=== PATIENT | male | born 1995 | race American Indian/Alaskan Native ===

== ENCOUNTER 2019-06-20 18:37 | Emergency (ER) | payer OTHER ==
--- NOTE | 2019-06-20 20:01 | Emergency Department Report ---
{null, Blank Doc - Documentation Documentation: 23-year-old male that presents with right finger lac with possible glass. This initial assessment/diagnostic orders/clinical plan/treatment(s) is/are subject to change based on patient's health status, clinical progression and re- assessment by fellow clinical providers in the ED. Further treatment and workup at subsequent clinical providers discretion. Patient/guardians urged not to elope from the ED as their condition may be serious if not clinically assessed and managed. Initial orders include: 1- Patient sent to [facility] for further evaluation and treatment 2- xrays 3- tetanus }
--- NOTE | 2019-06-20 20:51 | XRay Report ---
{null, RIGHT FINGER(S) 3 VIEW(S) INDICATION / CLINICAL INFORMATION: finger lac r/o foreign body with cut across the back of the ring and little fingers. COMPARISON: None available. FINDINGS: BONES / JOINT(S): No acute fracture or subluxation. No significant arthritis. SOFT TISSUES: Mild soft tissue swelling of the dorsal aspect of the ring and little fingers. No radio paque foreign body. ADDITIONAL FINDINGS: None. Signer Name: Derick Forte MD Signed: 06/20/2019 8:47 PM Workstation Name: [id number] }
[2019-06-20] MEDS ORDERED: ceFAZolin 1 GM VIAL IM ONE (23:12)
[2019-06-20] MEDS ORDERED: ONDANSETRON 4 MG/2 ML INJ IM ONE (23:13)
[2019-06-20] MEDS ORDERED: fentaNYL 100 MCG/2 ML INJ IM ONE (23:13)
--- NOTE | 2019-06-20 23:30 | Emergency Department Report ---
{null, HPI - General Chief Complaint: Laceration/Recheck/Suture Time Seen by Provider: 06/20/19 19:59 - HPI HPI: Room 36 The patient is a 23-year-old male presenting with a chief complaint of right hand laceration. 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 Patient states he did not come in to the hospital at that time because he was celebrating Day. Patient complains of pain whenever he attempts to flex his fingers currently. ED Past Medical Hx - Past Medical History Previous Medical History?: Yes Hx Asthma: Yes - Surgical History Past Surgical History?: No - Family History Family history: no significant - Social History Smoking Status: Current Some Day Smoker Substance Use Type: None (Denies illicit drug use), Alcohol (Rarely) - Medications Home Medications: Home Medications Medication Instructions Recorded Confirmed Last Taken Type Acetaminophen/Codeine [Tylenol #3] 1 tab PO Q6H PRN #15 tab 07/25/15 Unknown Rx Cyclobenzaprine [Flexeril 10 MG 10 mg PO TID PRN #12 tablet 07/25/15 Unknown Rx TAB] traMADoL [Ultram] 50 mg PO Q6HR PRN #20 tablet 06/20/19 Unknown Rx ED Review of Systems ROS: Stated complaint: FINGER CUT BY GLASS Other details as noted in HPI Skin: other (Laceration) Physical Exam - Physical Exam Vital Signs: Vital Signs 06/20/19 06/20/19 19:22 20:03 Temperature 98.5 F 98.5 F Pulse Rate 74 77 Respiratory 18 28 H Rate Blood Pressure 148/85 148/85 O2 Sat by Pulse 100 100 Oximetry Physical Exam: GENERAL: The patient is well-developed well-nourished male sitting on chair holding hand in [place] not appear to be in acute distress. [] HEENT: Normocephalic. Atraumatic. Extraocular motions are intact. Patient has moist mucous membranes. NECK: Trachea midline CHEST/LUNGS: There is no respiratory distress noted. HEART/CARDIOVASCULAR: Normal capillary refill digits of right hand SKIN: There is a linear laceration overlying the dorsum of the right ring finger and right small finger. On the right ring finger there appears to be a small amount of exposed subcutaneous tissue. No active bleeding NEURO: The patient is awake, alert, and oriented. The patient is cooperative. The patient has no focal neurologic deficits. The patient has normal speech MUSCULOSKELETAL: There is no deformity. ED Course Vital Signs 06/20/19 06/20/19 19:22 20:03 Temperature 98.5 F 98.5 F Pulse Rate 74 77 Respiratory 18 28 H Rate Blood Pressure 148/85 148/85 O2 Sat by Pulse 100 100 Oximetry ED Medical Decision Making - Radiology Data Radiology results: report reviewed (Right hand x-ray), image reviewed (Right hand x-ray) interpreted by me: Right hand x-ray-no radiopaque foreign body seen. No fractures [facility] [address] [place] [address] XRay Report Signed Patient: EDMUND TRONCOSO MR#: [id number] : 1995 Acct:[id number] Age/Sex: 23 / M ADM Date: 06/20/19 Loc: ED Attending Dr: Ordering Physician: CASSANDRA SCOTT NP Date of Service: 06/20/19 Procedure(s): XR finger(s) 2+V RT Accession Number(s): [id number] cc: CASSANDRA SCOTT NP Fluoro Time In Minutes: RIGHT FINGER(S) 3 VIEW(S) INDICATION / CLINICAL INFORMATION: finger lac r/o foreign body with cut across the back of the ring and little fingers. COMPARISON: None available. FINDINGS: BONES / JOINT(S): No acute fracture or subluxation. No significant arthritis. SOFT TISSUES: Mild soft tissue swelling of the dorsal aspect of the ring and little fingers. No radiopaque foreign body. ADDITIONAL FINDINGS: None. Signer Name: Derick Forte MD Signed: 06/20/2019 8:47 PM Workstation Name: [id number] Transcribed By: DT Dictated By: Hardik Forte MD Electronically Authenticated By: Hardik Forte MD Signed Date/Time: 06/20/192046 DD/ 46 TD/TT: - Medical Decision Making I explained to the patient that his wound is been open for over 48 hours and primary closure at this time comes with a significantly increase chance of increased morbidity and/or mortality secondary to infection. Explained that the wound needs to close by secondary intention and he would be placed on antibiotics prophylactically. Patient will be given a referral for hand specialist for further evaluation - Differential Diagnosis Finger laceration Critical care attestation.: If time is entered above; I have spent that time in minutes in the direct care of this critically ill patient, excluding procedure time. ED Disposition Clinical Impression: Finger laceration Disposition: DC-01 TO HOME OR SELFCARE Is pt being admited?: No Does the pt Need Aspirin: No Condition: Stable Instructions: Finger Laceration (ED) Additional Instructions: Return to the emergency department should you develop worsening symptoms, inability to tolerate food or liquids, high fever or any other concerns Prescriptions: traMADoL [Ultram] 50 mg PO Q6HR PRN #20 tablet PRN Reason: Pain Referrals: Orthopedic hand specialist, [facility] [Other] - [facility] ([facility] has hand specialists. Please follow-up with them for further evaluation) Time of Disposition: 23:38 }
[2019-06-21 00:55] VITALS: BP 132/76
== END 2019-06-21 01:00 | disposition home or self-care (01) ==
LOC: ED 18:37
DX: S61.214A Laceration without foreign body of right ring finger without damage to nail, initial encounter (principal); S61.216A Laceration without foreign body of right little finger without damage to nail, initial encounter; J45.909 Unspecified asthma, uncomplicated; F17.200 Nicotine dependence, unspecified, uncomplicated; Z79.899 Other long term (current) drug therapy; Z88.8 Allergy status to other drugs, medicaments and biological substances; W25.XXXA Contact with sharp glass, initial encounter; Y93.89 Activity, other specified; Y92.89 Other specified places as the place of occurrence of the external cause; Y99.8 Other external cause status
CPT/HCPCS: 73140; 96372; 99283; J0690; J2405; J3010